=== PATIENT | female | born 2000 | race Caucasian/White ===

== ENCOUNTER → 2020-08-04 10:46 | Outpatient (BNVA) | payer OTHER, SELFPAY | PROVIDERS: PCP Internal Medicine; Referring Provider Internal Medicine; Visit Provider Obstetrics & Gynecology | DX: Z76.89 Persons encountering health services in other specified circumstances (principal) ==

== ENCOUNTER 2020-08-04 12:25 | Outpatient (REF) | payer OTHER, SELFPAY | END 2020-08-04 12:26 | disposition home or self-care (01) | LOC: HO.LNP 12:25 | PROVIDERS: Visit Provider Obstetrics & Gynecology | DX: Z34.03 Encounter for supervision of normal first pregnancy, third trimester (principal) | CPT/HCPCS: 87081 ==

== ENCOUNTER → 2020-08-11 11:27 | Outpatient (BNVA) | payer OTHER, SELFPAY | PROVIDERS: PCP Internal Medicine; Visit Provider Advanced Practice Midwife | DX: Z76.89 Persons encountering health services in other specified circumstances (principal) ==

== ENCOUNTER → 2020-08-18 11:36 | Outpatient (BNVA) | payer OTHER, SELFPAY | PROVIDERS: PCP Internal Medicine; Visit Provider Advanced Practice Midwife | DX: Z76.89 Persons encountering health services in other specified circumstances (principal) ==

== ENCOUNTER → 2020-09-02 14:06 | Outpatient (BNVA) | payer OTHER, SELFPAY | PROVIDERS: Visit Provider Advanced Practice Midwife | DX: Z76.89 Persons encountering health services in other specified circumstances (principal) ==

== ENCOUNTER 2020-09-05 13:36 | Outpatient (REF) | payer OTHER, SELFPAY ==
[2020-09-06 13:55] LABS: BV Int Neg Control Negative (Negative); BV Int Pos Control Positive (Positive)
== END 2020-09-05 13:37 | disposition home or self-care (01) ==
LOC: HO.LAB 13:36
PROVIDERS: Visit Provider Advanced Practice Midwife
DX: O75.89 Other specified complications of labor and delivery (principal); R52 Pain, unspecified; Z39.1 Encounter for care and examination of lactating mother
CPT/HCPCS: 87480; 87510; 87660; 99212

== ENCOUNTER → 2020-09-12 14:36 | Outpatient (BNVA) | payer OTHER, SELFPAY | PROVIDERS: Visit Provider Advanced Practice Midwife | DX: Z39.2 Encounter for routine postpartum follow-up (principal); O90.89 Other complications of the puerperium, not elsewhere classified; R52 Pain, unspecified; Z30.09 Encounter for other general counseling and advice on contraception | CPT/HCPCS: 99212 ==

== ENCOUNTER → 2020-11-03 12:56 | Outpatient (BNVA) | payer OTHER, SELFPAY | PROVIDERS: PCP Pediatrics; Visit Provider Advanced Practice Midwife | DX: N94.6 Dysmenorrhea, unspecified (principal); Z87.42 Personal history of other diseases of the female genital tract; Z00.00 Encounter for general adult medical examination without abnormal findings | CPT/HCPCS: 99212 ==

== ENCOUNTER 2022-11-20 13:54 | Emergency (ER) | payer OTHER, SELFPAY | END 2022-11-20 14:45 | disposition left against medical advice (07) | PROVIDERS: Emergency Provider Emergency Medicine | DX: R05.9 Cough, unspecified (principal); R07.9 Chest pain, unspecified ==

== ENCOUNTER 2023-01-03 09:52 | Outpatient (REF) | payer OTHER, SELFPAY ==
[2023-01-03 18:39] LABS: CT PCR NOT DETECTED (Not Detect.); NG PCR NOT DETECTED (Not Detect.)
[2023-01-04 07:58] LABS: Syphilis Screen Nonreactive (Nonreactive)
[2023-01-04 08:13] LABS: HBsAGNum1 0.37 S/CO (0.00-0.99); HIV AB/AG Nonreactive (Nonreactive); HIV Num 1 0.06 S/CO (0.00-0.99); Hepatitis B Surface Antigen Negative (Negative); ~Hepatitis C Antibody Nonreactive (Nonreactive)
[2023-01-04 11:14] LABS: BV Int Neg Control Negative (Negative); BV Int Pos Control Positive (Positive)
[2023-01-12 06:04] LABS: HPV mRNA E6/E7 rflx Not Detected (Not Detected)
== END 2023-01-03 09:53 | disposition home or self-care (01) ==
LOC: HO.LNP 09:52
PROVIDERS: Visit Provider Advanced Practice Midwife
DX: Z01.419 Encounter for gynecological examination (general) (routine) without abnormal findings (principal); Z20.2 Contact with and (suspected) exposure to infections with a predominantly sexual mode of transmission; Z79.899 Other long term (current) drug therapy
CPT/HCPCS: 0353U; 86780; 86803; 87340; 87389; 87480; 87510; 87624; 87660; 88142